=== PATIENT | male | born 1950 | race African-American/Black ===

== ENCOUNTER 2025-02-28 13:47 | Emergency (ER) | payer OTHER, SELFPAY ==
[2025-02-28 13:55] VITALS: BP 164/91; PULSE 64; RESP 18; TEMP 36.6; O2SAT 96; BMI 35.5
[2025-02-28 14:44] LABS: PCR FLU A Negative PCR FLU A (Negative); PCR FLU B Negative PCR FLU B (Negative); PCR RSV Negative PCR RSV (Negative); SARS PCR* Negative SARS-CoV-2 (Negative)
--- OUTSIDE RECORDS SUMMARY | 2025-02-28 16:28 | XMS_ITS | Encounter Summary ---
Author Organization [facility] Address [address] [place] [address] Phone Care Team Providers Care Isotope Hydrologist Name Role Phone Herbert Vasquez MD Primary Care Provider [phone] Reason for Visit * Reason Onset Date Comments Results 10/17/2020 adrenal work up Encounter Details Date Type Department Care Team ([facility] st Contact Info) Description 10/17/2020 Telephone [facility] Urology [place] [address] [place] [address] Brad Taylor MD [address] [place] [address] Results (adrenal work up) Social History Tobacco Use Types Packs/Day Years Used Date Smoking Tobacco: Never Smokeless Tobacco: Never Alcohol Use Standard Drinks/Week Comments Never 0 (1 standard drink = 0.6 oz pur e alcohol) AUDIT-C Answer Date Recorded Q1: How often do you have a drink containing alc ohol? Never 03/02/2020 Average Number of Drinks Not on file 020 Q3: How often do you have si x or more drinks on one occasion? Never 03/02/2020 Sex and Gender Information Value Date Recorded Sex Assigned at Not on file Legal Sex Male 1:43 PM CDT Gender Identity Not on file Sexual Orientation Not on file documented as of this encounter Miscellaneous Notes * Telephone Encounter - Caity Guidry - 10/17/2020 1:14 PM CDT Pt notified of lab results * Telephone Encounter - Mireille Petersen LPN - 10/17/2020 8:31 AM CDT LVm for jose regarding adrenal work up all coming back normal * Telephone Encounter - Mireille Petersen LPN - 10/17/2020 8:30 AM CDT ----- Message from Brad Taylor MD sent at 10/16/2020 7:18 PM CDT ----- Please let him know adrenal labs are fine documented in this encounter Plan of Treatment Upcoming Encounters Date Type Department Care Team (Late st Contact Info) Description 03/09/2025 1:10 PM CDT Office Visit [facility] Hematology and Oncology [address] [phone] Lilibeth Belcher [address] [phone] 03/21/2025 1:40 PM CDT Office Visit [facility] Internal Medicine [place] [address] [place] [address] Herbert Vasquez MD [address] [place] [address] documented as of this encounter Visit Diagnoses Not on filedocumented in this encounter Care Teams Isotope Hydrologist Relationship Specialty Start Date End Date Herbert Vasquez MD PCP - General Adult Medicine 03/02/20 documented as of this encounter
--- OUTSIDE RECORDS SUMMARY | 2025-02-28 16:28 | XMS_ITS | Clinical Summary ---
Author Organization [facility] Address [address] [place] [address] Phone Care Team Providers Care Plaster Block Layer Name Role Phone Herbert Vasquez MD Primary Care Provider [phone] Allergies Active Allergy Reactions Criticality Noted Date Comments Spironolactone Other; see comment 03/11/2021 Breast sensitivity gynecomastia Amlodipine Other; see comment 03/11/2021 Leg swelling Medications LORazepam (ATIVAN) 1 mg tabletIndication s:anxiety Take one 1-2 tablets 30 min prior to airplane travel do not drive on medication 15 tablet 4 Active triamterene (DYRENIUM) 50 mg capsuleIndicatio ns:HTN (hypertension), benign Take 1 capsule (50 mg total) by mouth every day 90 capsule 4 4 Active lisinopriL 40 mg tabletIndication s:Benign essential HTN TAKE 1 TABLET(40 MG) BY MOUTH EVERY DAY 90 tablet 4 4 Active carvediloL (COREG) 12.5 mg tabletIndication s:Hypertension, unspecified type Take 1 tablet (12.5 mg total) by mouth 2 (two) times daily 180 tablet 4 5 Active cholecalciferol (VITAMIN D3) 50 mcg (2,000 unit) capsule Take 4,000 Units by mouth every morning Active gabapentin (NEURONTIN) 300 mg capsuleIndicatio ns:Umbilical hernia without obstruction or gangrene Take 1 capsule (300 mg total) by mouth 3 (three) times daily 9 capsule 5 Active terazosin 10 mg capsuleIndicatio ns:BPH associated with nocturia Take 1 capsule (10 mg total) by mouth every day 90 capsule 4 5 Active amLODIPine (NORVASC) 5 mg tabletIndication s:HTN (hypertension), benign Take 1 tablet (5 mg total) by mouth every day 30 tablet 5 02/29/20 26 Active Active Problems Problem Noted Date Diagnosed Date Hematuria, unspecified 06/22/2020 Assessment & Plan (06/22/2020 2:40 PM PRESCRIPTIONIST): He declines any urinary discomfort or urinary frequency. He is a nonsmoker and does not drink alcohol. He does have a history of BPH however last PSA checked was normal. Will proceed with urinalysis and urine culture for possibility of underlying infection. He is with one longstanding partner so I doubt this is secondary to an STI however this is a possibility. Other differentials include acute prostatitis. If initial workup unremarkable, will recommend that he see his PCP to evaluate further. Fall 06/22/2020 Assessment & Plan (06/22/2020 2:40 PM PRESCRIPTIONIST): I suspect this is secondary to become orthostatic. He takes all of his medications in the PM all which are for HTN or have BP lowering effects. Advised him to split them up and take terazosin and metoprolol in the PM and lisinopril in the AM. He voiced understanding and agreement with this plan. Penile rash 06/22/2020 Assessment & Plan (06/22/2020 2:41 PM PRESCRIPTIONIST): Likely secondary to possible penile yeast infection. He uses a cream as needed prescribed by PCP. He tells me the cream is working. He denies any itching or other discomfort. Advised that if he cream stops working to control the rash or if it starts to spread to be seen back in clinic. He voiced understanding. Resolved Problems Problem Noted Date Diagnosed Date Resolved Date Umbilical hernia without obs truction or gangrene 09/06/2024 09/16/2024 Encounters Date Type Department Care Team Description [facility] Internal Medicine [place] [address] [place] [phone] Herbert Vasquez MD Refill Request 12/06/2024 Refill [facility] Internal Medicine and Nephrology [address] [address] Herbert Vasquez MD Refill Request from Last 3 Months Immunizations Immunization Administration Dates Next Due Influenza Quadrivalent Adjuv anted (FLUAD QUAD) 03/30/2022 Respiratory Syncytial Virus - RSV (Abrysvo) 06/08 SARS-CoV-2 (Pfizer Monovalent COVID-19) 08/07/19,07/16/2020,07/12/2020 Family History Medical History Relation Name Comments Diabetes Brother Hypertension Brother No Pertinent Hx Daughter Prostate Cancer Father Alzheimer's Disease Mother Diabetes Sister Hypertension Sister No Pertinent Hx Son Relation Name Status Comments Brother Alive Daughter Alive Father Mother Sister pateint cant re member what sister of Son Alive Social History Tobacco Use Types Packs/Day Years Used Date Smoking Tobacco: Never Smokeless Tobacco: Never Tobacco Cessation:Counseling Given: Not Answered Alcohol Use Standard Drinks/Week Comments Never 0 (1 standard drink = 0.6 oz pur e alcohol) AUDIT-C Answer Date Recorded Q1: How often do you have a drink containing alc ohol? Never 03/02/2020 Average Number of Drinks Not on file 020 Q3: How often do you have si x or more drinks on one occasion? Never 03/02/2020 Hunger Vital Sign Answer Date Recorded Within the past 12 months, y ou worried that your food would run out before you got the money to buy more. Never true 08/09/19 25 Within the past 12 months, t he food you bought just didn't last and you didn't have money to get more. Never true 08/08/2024 Sex and Gender Information Value Date Recorded Sex Assigned at Not on file Legal Sex Male 1:43 PM CDT Gender Identity Not on file Sexual Orientation Not on file Last Filed Vital Signs Vital Sign Reading Time Taken Comments Blood Pressure 160/80 09/16/2024 11:35 AM CDT Pulse 54 09/16/2024 7:15 AM CDT Temperature 36.7 C (98.1 F) 09/16/2024 10:26 AM CDT Respiratory Rate 18 09/16/2024 11:1 5 AM CDT Oxygen Saturation 96% 09/16/2024 11: 15 AM CDT Inhaled Oxygen Concentration - - Weight 120.9 kg (266 lb 8.6 oz) 09/16/2024 7:15 AM CDT Height 182.9 cm (6') 09/16/2024 7:15 AM CDT Body Mass Index 36.15 09/16/2024 7:15 AM CDT Plan of Treatment Upcoming Encounters Date Type Department Care Team (Late st Contact Info) Description 03/09/2025 1:10 PM CDT Office Visit [facility] Hematology and Oncology [address] [place] [address] Lilibeth Belcher DO [address] [place] [address] 03/21/2025 1:40 PM CDT Office Visit [facility] Internal Medicine [place] [address] [place] [phone] Herbert Vasquez MD [address] [place] [address] Health Maintenance Due Date Last Done Comments Diagnostic Colonoscopy 1950 DTaP/Tdap/Td Vaccines (1 - Tdap) 1969 CT Colonography 1995 Fecal Immunochemical Testing (FIT) 1995 Fecal Occult Blood (FOBT) 1995 Flexible Sigmoidoscopy 1995 HCPOA Document on File 2000 Pneumococcal Vaccines (50+) (1 of 1 - PCV) 2000 Zoster (Shingles) Vaccine (1 of 2) 2000 Screening Colonoscopy 01/03/2025 01/03/2015 COVID-19 Vaccine (2024- season) 2025 04/12/2023, 03/30/2022, 03/27/2021, Additional history exists Influenza Vaccine (#1) 2025 03/30/2022 Depression Screening 08/16/2025 08/16/2024, 08/11/2024, 08/02/2024, Additional history exists Eligible for Subsequent Annual Medicare Wellness Exam 08/16/2025 08/16/2024 Fall Screening 08/16/2025 08/16/2024, 10/2023, 08/11/2023, Additional history exists Colorectal Cancer Screening 02/23/2027 FIT-DNA (Cologuard) 02/23/2027 02/24/2024 Screening for Diabetes 09/22/2027 , 09/16/2024, 09/07/2024, Additional history exists RSV Vaccine (60+/) Completed 06/19/2023 Eligible for Initial Annual Medicare Wellness Exam Discontinued 08/11/2023 HIB Vaccines Aged Out No longer eligi ble based on patient's age to complete this topic HPV Vaccines Aged Out No longer eligi ble based on patient's age to complete this topic Hepatitis A Vaccines Aged Out No long er eligible based on patient's age to complete this topic Hepatitis B Vaccines Aged Out No long er eligible based on patient's age to complete this topic IPV Vaccines Aged Out No longer eligi ble based on patient's age to complete this topic Meningococcal B Vaccine Aged Out No l onger eligible based on patient's age to complete this topic Meningococcal Vaccine (ACWY) Aged Out No longer eligible based on patient's age to complete this topic Rotavirus Vaccines Aged Out No longer eligible based on patient's age to complete this topic Medical Devices Implanted Type Area Cheese Processor Device Identifier Shelf Expiration Date Model / Serial / Lot Ph[employer]ix St Umbilical Hernia Mesh Implanted:Qty: 1 on 09/16/2024 by Sabas Zhang MD at [facility] LOCATION N/A: [employer]mb[employer] 05/05/2025 [id number] / / [id number] Procedures Procedure Name Priority Date/Time Associated Diagnosis Comments COMPREHENSIVE METABOLIC PANEL Routine 09/21/2024 1:10 PM CDT Elevated serum creatinine COLOGUARD Routine 02/24/2024 3:00 AM CDT Colon cancer screening from Last 3 Months or Most Recently Relevant to Health Maintenance Results * (ABNORMAL) COMPREHENSIVE METABOLIC PANEL (09/21/2024 1:10 PM CDT) CALCIUM 8.7 8.4 - 10.2 mg/dL [facility] GLUCOSE 106 74 - 106 mg/dL [facility] Comment: REFERENCE RANGE FOR GLUCOSE: NON- ADULT 65 TO 99 MG/DL-FASTING, NORMOGLYCEMIA 100 TO 125 MG/DL-IMPAIRED FASTING GLUCOSE 65 TO 125 MG/DL-NORMOGLYCEMIA, NON-FASTING IMPAIRED GLUCOSE TOLERANCE IS DIAGNOSED IF THE FOLLOWING ARE PRESENT: FASTING GLUCOSE LEVEL 100-125 MG/DL; AND THE 120 MINUTES SAMPLE IS BETWEEN 140-199 MG/DL BASED ON ADA GUIDELINES, FOLLOW-UP REPORT OF THE EXPERT COMMITTEE ON THE DIAGNOSIS OF DIABETES MELLITUS. DIABETES CARE,VOL.26.. FLAGGING IS BASED ON FASTING REF RANGE BUN 12 7 - 20 mg/dL [facility] CREATININE 1.3 0.7 - 1.5 mg/dL [facility] TOTAL PROTEIN 7.1 6.3 - 8.2 g/dL [facility] ALBUMIN 3.8 3.5 - 5.0 g/dL [facility] BILIRUBIN, TOTAL 0.5 0.2 - 1.3 mg/dL [facility] AST 37 15 - 46 U/L [facility] ALT 22 0 - 50 U/L [facility] ALKALINE PHOSPHATASE 100 38 - 126 U/L [facility] SODIUM 138 137 - 145 mmol/L [facility] POTASSIUM 4.3 3.5 - 5.1 mmol/L [facility] CHLORIDE 108(H) 98 - 107 mmol/L [facility] Comment: CHLORIDE NOTE: Triglyceride at 600 mg/dl may cause a positive bias of approximately 2.1 mmol/L for Chloride CO2 30 22 - 30 mmol/L [facility] GFR:NON- 54 arbitrary unit [facility] GFR: 65 arbitrary unit [facility] Comment: CHRONIC KIDNEY DISEASE <60 ML/MIN/1.73 M^2 KIDNEY FAILURE <15 ML/MIN/1.73 M^2 REFERENCE: NKDEP (MDRD equation) NOTE: Results of GFR should be interpreted in relation to patient's clinical history & presenting condition. [facility], [address] [place] [phone] 09/21/2024 1:10 PM CDT 09/21/2024 3:18 PM CDT us Herbert Vasquez MD HEM/CHEM/IMMUN-BLOOD Final Resu lt [facility] [address] [place] [address], * COLOGUARD (02/24/2024 3:00 AM CDT) Pathologist [facility] COLOGUARD Negative Negative 03/02/2024 6:07 AM CDT [facility] (CLIA #:[id number]) Comment: NEGATIVE TEST RESULT. A negative Cologuard result indicates a low likelihood that a colorectal cancer (CRC) or advanced adenoma (adenomatous polyps with more advanced pre-malignant features) is present. The chance that a person with a negative Cologuard test has a colorectal cancer is less than 1 in 1500 (negative predictive value >99.9%) or has an advanced adenoma is less than 5.3% (negative predictive value 94.7%). These data are based on a prospective cross-sectional study of 10,000 individuals at average risk for colorectal cancer who were screened with both Cologuard and colonoscopy. (Kyle Sherman et al, N Engl J Med 2014;370(14):1368-5954) The normal value (reference range) for this assay is negative. COLOGUARD RE-SCREENING RECOMMENDATION: Periodic colorectal cancer screening is an important part of preventive healthcare for asymptomatic individuals at average risk for colorectal cancer. Following a negative Cologuard result, the [place] [employer] Society and U.S. Multi-Society Task Force screening guidelines recommend a Cologuard re-screening interval of 3 years. References: [place] [employer] Guideline for Colorectal Cancer Screening: https://www.cancer.org/cancer/upzhl-tkougk-fydeif/tfiouvudp-jfqcfstxv-twgfqsp/ac s-rec ommendations.html.; Too DK, Ike CR, Jennifer JoyaK, Colorectal Cancer Screening: Recommendations for Physicians and Patients from the U.S. Multi-Society Task Force on Colorectal Cancer Screening , Am J Gastroenterology 2017; 112:4285-3538. TEST DESCRIPTION: Composite algorithmic analysis of stool DNA-biomarkers with hemoglobin immunoassay. Quantitative values of individual biomarkers are not reportable and are not associated with individual biomarker result reference ranges. Cologuard is intended for colorectal cancer screening of adults of either sex, 45 years or older, who are at average-risk for colorectal cancer (CRC). Cologuard has been approved for use by the U.S. FDA. The performance of Cologuard was established in a cross sectional study of average-risk adults aged 50-84. Cologuard performance in patients ages 45 to 49 years was estimated by sub-group analysis of near-age groups. Colonoscopies performed for a positive result may find as the most clinically significant lesion: colorectal cancer [4.0%], advanced adenoma (including sessile serrated polyps greater than or equal to 1cm diameter) [20%] or non- advanced adenoma [31%]; or no colorectal neoplasia [45%]. These estimates are derived from a prospective cross-sectional screening study of 10,000 individuals at average risk for colorectal cancer who were screened with both Cologuard and colonoscopy. (Kyle Vasquez al, N Engl J Med 2014;370(14):6846-0151.) Cologuard may produce a false negative or false positive result (no colorectal cancer or precancerous polyp present at colonoscopy follow up). A negative Cologuard test result does not guarantee the absence of CRC or advanced adenoma (pre-cancer). The current Cologuard screening interval is every 3 years. ([place] [employer] Society and U.S. Multi-Society Task Force). Cologuard performance data in a 10,000 patient pivotal study using colonoscopy as the reference method can be accessed at the following location: www.[employer]/results. Additional description of the Cologuard test process, warnings and precautions can be found at www.[employer]ogiWardard.com. Stool specimen (specimen) RECTAL SWAB / Unknown 02/24/2024 3:00 AM CDT 02/25/2024 12:06 PM CDT us Herbert Vasquez MD REFERENCE NON-BLOOD Final Resul t [facility] (CLIA #:[id number]) [address] [place] [address], from Last 3 Months or Most Recently Relevant to Health Maintenance Insurance [employer] [facility] [employer] Care Teams Plaster Block Layer Relationship Specialty Start Date End Date Herbert Vasquez MD PCP - General Adult Medicine 03/02/20
--- OUTSIDE RECORDS SUMMARY | 2025-02-28 16:28 | XMS_ITS | Encounter Summary ---
Author Organization [facility] Address [address] [place] [address] Phone Care Team Providers Care Retreader Name Role Phone Herbert Vasquez MD Primary Care Provider [phone] Encounter Details Date Type Department Care Team (Late Contact Info) Description 01/22/2018 Scanned Document NON JONES REFERRING DOCS Provider, Outside Social History Tobacco Use Types Packs/Day Years Used Date Smoking Tobacco: Never Assessed Sex and Gender Information Value Date Recorded Sex Assigned at Not on file Legal Sex Male 1:43 PM CDT Gender Identity Not on file Sexual Orientation Not on file documented as of this encounter Plan of Treatment Upcoming Encounters Date Type Department Care Team (Late Contact Info) Description 03/09/2025 1:10 PM CDT Office Visit [facility] Hematology and Oncology [address] [address] Lilibeth Belcher [address] [phone] 03/21/2025 1:40 PM CDT Office Visit [facility] Internal Medicine [place] [address] [place] [phone] Herbert Vasquez MD [address] [place] [address] documented as of this encounter Visit Diagnoses Not on filedocumented in this encounter Care Teams Retreader Relationship Specialty Start Date End Date Herbert Vasquez MD PCP - General Adult Medicine 03/02/20 documented as of this encounter
--- OUTSIDE RECORDS SUMMARY | 2025-02-28 16:28 | XMS_ITS | Encounter Summary ---
Author Organization [facility] Address [address] [place] [address] Phone Care Team Providers Care Pole Peeling Machine Operator Name Role Phone Herbert Vasquez MD Primary Care Provider [phone] Reason for Visit * Reason Comments Refill Request Encounter Details Date Type Department Care Team ([facility] Contact Info) Description 02/28/2025 Refill [facility] Internal Medicine [place] [address] [place] [phone] Herbert Vasquez MD [address] [place] [address] Refill Request Social History Tobacco Use Types Packs/Day Years [...] Description 03/09/2025 1:10 PM CDT Office Visit [facility] Hematology and Oncology [facility] [address] [place] [address] Lilibeth Belcher DO [address] [place], [place] [address] 03/21/2025 1:40 PM CDT Office Visit [facility] Internal Medicine [place] [address] [place] [address] Herbert Vasquez MD [address] [place] [address] documented as of this encounter Visit Diagnoses Diagnosis HTN (hypertension), benign Essential hypertension, benign documented in this encounter Care Teams Pole Peeling Machine Operator Relationship Specialty Start Date End Date Herbert Vasquez MD PCP - General Adult Medicine 03/02/20 documented as of this encounter
--- OUTSIDE RECORDS SUMMARY | 2025-02-28 16:28 | XMS_ITS | Encounter Summary ---
Author Organization [facility] Address [address] [place] [address] Phone Care Team Providers Care Bruise Trimmer Name Role Phone Herbert Vasquez MD Primary Care Provider [phone] Encounter Details Date Type Department Care Team (Late st Contact Info) Description 01/03/2015 Scanned Document [facility] [address] [place] [address] Provider, Interface Default Social History Tobacco Use Types Packs/Day Years [...] Description 03/09/2025 1:10 PM CDT Office Visit [facility] Hematology and Oncology [address] [phone] Lilibeth Belcher DO [address] [place] [phone] 03/21/2025 1:40 PM CDT Office Visit [facility] Internal Medicine [place] [address] [place] [phone] Herbert Vasquez MD [address] [place] [address] documented as of this encounter Visit Diagnoses Not on filedocumented in this encounter Care Teams Bruise Trimmer Relationship Specialty Start Date End Date Herbert Vasquez MD PCP - General Adult Medicine 03/02/20 documented as of this encounter
--- OUTSIDE RECORDS SUMMARY | 2025-02-28 16:28 | XMS_ITS | Encounter Summary ---
Author Organization [facility] Address [address] [place] [address] Phone Care Team Providers Care Relay Shop Supervisor Name Role Phone Herbert Vasquez MD Primary Care Provider [phone] Reason for Visit * Reason Onset Date Comments Results 10/05/2020 lab work Encounter Details Date Type Department Care Team ([facility] st Contact Info) Description 10/05/2020 Telephone [facility] [place] [address] [place] [address] Brad Taylor MD [address] [place] [address] Results (lab work) Social History Tobacco Use Types Packs/Day Years [...] on file Sexual Orientation Not on file COVID-19 Exposure Response Date Recorded In the last month, have you been in contact with someone who was confirmed or suspected to have Coronavirus / COVID-19? No / Unsure 09/07/2020 3:04 PM CDT documented as of this encounter Miscellaneous Notes * Telephone Encounter - Mireille Petersen LPN - 10/05/2020 10:28 AM CDT Called and talked to Themla in lab she said the catecholamines were drawn but they go to [facility] and can take up to 10 days. They were drawn though, currently still processing. * Telephone Encounter - Mireille Petersen LPN - 10/05/2020 10:27 AM CDT ----- Message from Brad Taylor MD sent at 10/05/2020 10:21 AM CDT ----- Please call him let him know test we have back are normal. The catecholamines need to be done in should be redrawn. Please find out why we were not notified test was canceled/not done. documented in this encounter Plan of Treatment Upcoming Encounters Date Type Department Care Team (Late st Contact Info) Description 03/09/2025 1:10 PM CDT Office Visit [facility] Hematology and Oncology [address] [address] Lilibeth Belcher DO [address] [place] [phone] 03/21/2025 1:40 PM CDT Office Visit [facility] Internal Medicine [place] [address] [place] [address] Herbert Vaqsuez MD [address] [place] [address] documented as of this encounter Visit Diagnoses Not on filedocumented in this encounter Care Teams Relay Shop Supervisor Relationship Specialty Start Date End Date Herbert Vasquez MD PCP - General Adult Medicine 03/02/20 documented as of this encounter
--- OUTSIDE RECORDS SUMMARY | 2025-02-28 16:28 | XMS_ITS | Encounter Summary ---
Author Organization [facility] Address [address] [place] [address] Phone Care Team Providers Care Toolmaker Helper Name Role Phone Herbert Vasquez MD Primary Care Provider [phone] Reason for Visit * Reason Onset Date Comments Results 10/05/2020 Encounter Details Date Type Department Care Team ([facility] Contact Info) Description 10/05/2020 Telephone [facility] Urology [place] [address] [place] [address] Brad Taylor MD [address] [place] [address] Results Social History Tobacco Use Types Packs/Day Years [...] Telephone Encounter - Caity Guidry - 10/17/2020 9:28 AM CDT Lab had been resulted * Telephone Encounter - Caity Guidry - 10/16/2020 8:43 AM CDT Per kalpana, lab is still pending with [facility]. * Telephone Encounter - Brad Taylor MD - 10/15/2020 6:04 PM CDT Please call Lab again in find out if we have catecholamine results * Telephone Encounter - Ivanna Horvath - 10/05/2020 8:06 AM CDT Called lab, Catecholamine and aldosterone are send outs. The reports are usually available 4-7 dayslater. Labs were drawn on 09/26/20, probably didn't get set up to run until 09/27/20. Theysaid that we could put a call into [facility] to see when it will be done if you would like. Please let me know. Thanks. * Telephone Encounter - Ivanna Horvath - 10/05/2020 8:06 AM CDT ----- Message from Brad Taylor MD sent at 10/04/2020 6:00 PM CDT ----- Please call Lab in check on catecholamine results documented in this encounter Plan of Treatment Upcoming Encounters Date Type Department Care Team (Late st Contact Info) Description 03/09/2025 1:10 PM CDT Office Visit [facility] Hematology and Oncology [address] [address] Lilibeth Belcher DO [address] [place] [address] 03/21/2025 1:40 PM CDT Office Visit [facility] Internal Medicine [place] [address] [place] [phone] Herbert Vasquez MD [address] [place] [address] documented as of this encounter Visit Diagnoses Not on filedocumented in this encounter Care Teams Toolmaker Helper Relationship Specialty Start Date End Date Herbert Vasquez MD PCP - General Adult Medicine 03/02/20 documented as of this encounter
--- OUTSIDE RECORDS SUMMARY | 2025-02-28 16:28 | XMS_ITS | Clinical Summary ---
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 Gender Identity Not on file Sexual Orientation Not on file Plan of Treatment Health Maintenance Due Date Last Done Comments Hepatitis C Virus (HCV) Screening 1950 TdaP Immunization 1950 Cologuard 1995 Colonoscopy 1995 Colorectal Cancer Screening 1995 Immunochemical Fecal Occult Blood 1995 Pneumococcal Immunization (5 0+ years) (1 of 1 - PCV) 2000 Zoster Immunization (1 of 2) 2000 SARS-COV-2 Immunization (1 - 2023- season) 2024 Influenza Immunization (#1) 2025 Respiratory Syncytial Virus (RSV) Immunization (Adult) (1 - 1-dose 75+ series) 2025 Hepatitis B Immunization Aged Out No longer eligible based on patient's age to complete this topic Human Papillomavirus (HPV) Immunization Aged Out No longer eligible b ased on patient's age to complete this topic Meningococcal Immunization (ACWY) Aged Out No longer eligible based on patient's age to complete this topic Rotavirus Immunization Aged Out No lo nger eligible based on patient's age to complete this topic Insurance [employer] on file
--- OUTSIDE RECORDS SUMMARY | 2025-02-28 16:28 | XMS_ITS | Encounter Summary ---
Author Organization [facility] Address [address] [place] [address] Phone Care Team Providers Care Pinsetter Mechanic Automatic Name Role Phone Herbert Vasquez MD Primary Care Provider [phone] Encounter Details Date Type Department Care Team (Late Contact Info) Description 01/23/2020 Scanned Document NON JONES REFERRING DOCS Provider, [...] Description 03/09/2025 1:10 PM CDT Office Visit [facility] Hematology and Oncology [address] [address] Lilibeth Belcher [address] [phone] 03/21/2025 1:40 PM CDT Office Visit [facility] Internal Medicine [place] [address] [place] [phone] Herbert Vasquez MD [address] [place] [address] documented as of this encounter Visit Diagnoses Not on filedocumented in this encounter Care Teams Pinsetter Mechanic Automatic Relationship Specialty Start Date End Date Herbert Vasquez MD PCP - General Adult Medicine 03/02/20 documented as of this encounter
--- NOTE | 2025-02-28 16:37 | ED_ITS ---
HPI - General Adult General Chief complaint: Hypertension Stated complaint: high BP Time Seen by Provider: 02/28/25 15:54 Source: patient Mode of arrival: ambulatory Limitations: no limitations History of Present Illness HPI narrative: Patient is a 74-year-old male presenting to the emergency department for hypertension. He has been checking his blood pressures at home and over the past few days they have been elevated. They were concerned could be related to his and tight congested medication he is taking for his viral symptoms. The highest the blood pressure has been at home was 190s over 100s. He did speak to his primary care provider who has sent him and other blood pressure medication. Was told to come to the emergency department to be evaluated. Denies chest pain, shortness of breath, abdominal pain, lightheadedness, dizziness, weakness, confusion, fevers, chills, diarrhea, constipation. Has been having a slight cough. Not aware of any sick contacts. No other concerns noted. Related Data Home Medications ?Medication ?Instructions ?Recorded ?Confirmed carvedilol 12.5 mg tablet 12.5 mg PO BID 02/28/2502/07 lorazepam 1 mg tablet (Ativan) 1 mg PO Q12H PRN 02/28/25 nystatin-triamcinolone 100,000 1 applic topical DAILY 02/28/25 02/28/25 unit/g-0.1 % topical cream terazosin 10 mg capsule 10 mg PO DAILY 02/28/2502/07 Allergies Allergy/AdvReac Type Severity Reaction Status Date / Time No Known Drug Allergies Allergy Verified 02/28/25 13:53 Review of Systems Status of ROS: Reports: 10 or more systems reviewed and unremarkable except as noted in History and below PFSH [facility] Social History Smoking Status: Never smoker How often do you have a drink containing alcohol: never AUDIT-C Alcohol total score: 0 Non-prescribed substance use: denies use Exam Narrative: Exam Narrative: Const: Well-nourished, Well-developed, in no distress Eyes: PERRL, no conjunctival injection, and symmetrical lids HENT: Atraumatic external nose and ears. Moist mucous membranes. Neck: Symmetric, trachea midline, No thyromegaly. CVS: RRR, No murmurs or gallops. Peripheral pulses 2+ and equal in all extremities RESP: Unlabored respiratory effort. Clear to auscultation bilaterally. GI: Nontender/Nondistended, No rebound or guarding. MSK:Extremities w/o deformity, Normal Active ROM Skin: Warm, Dry. No rashes or lesions. Neuro: Normal Muscle tone, No focal neurological deficits. Psych: Awake, Alert, & Oriented x3. Appropriate mood and affect. Const: Vital Signs, click to edit/add: Vital Signs - 24 hr 02/28/25 13:55 02/28/25 16:44 Temperature 97.8 F Pulse Rate 58 L Pulse Rate [Right Pulse Oximeter] 64 Respiratory Rate 18 16 Blood Pressure 173/94 H Blood Pressure [Ri ght Upper Arm] 164/91 H Pulse Oximetry 96 96 Oxygen Delivery Me thod Room Air Room Air Course Vital Signs Vital signs: Initial Vital Signs Temperature 97.8 F 02/28/25 13:55 Temperature Source Temporal Artery Scan 02/28/25 13:55 Pulse Rate 64 02/28/25 13:55 Respiratory Rate 18 02/28/25 13:55 Blood Pressure 164/91 H 02/28/25 13:55 Blood Pressure Mean 115 H 02/28/25 13:55 Blood Pressure Position Sitting 02/28/25 13:55 Pulse Oximetry 96 02/28/25 13:55 Oxygen Delivery Method Room Air 02/28/25 13:55 Vital Signs Temperature 97.8 F 02/28/25 13:55 Pulse Rate 64 02/28/25 13:55 Respiratory Rate 18 02/28/25 13:55 Blood Pressure 164/91 H 02/28/25 13:55 Pulse Oximetry 96 02/28/25 13:55 Oxygen Delivery Method Room Air 02/28/25 13:55 Temperature 97.8 F 02/28/25 13:55 Pulse Rate 58 L 02/28/25 16:44 Respiratory Rate 16 02/28/25 16:44 Blood Pressure 173/94 H 02/28/25 16:44 Pulse Oximetry 96 02/28/25 16:44 Oxygen Delivery Method Room Air 02/28/25 16:44 Medical Decision Making MDM Narrative Medical decision making narrative: Patient is a 74-year-old male presenting to the emergency department for asymptomatic hypertension. He does have some viral symptoms so I will order viral swabs. He otherwise is doing well. Vital signs are stable. Per ACEP recommendations for asymptomatic hypertension further workup is not necessary. I spoke to the patient about this and he is agreeable to this plan. Will call him back with results of his viral swabs. With his normal appearing vitals and overall appeared well I do not believe further lab work or imaging is necessary. Lab Data Labs: Lab Results 02/28/25 Range/Units 02:00 SARS-CoV-2 (PCR) Negative SARS-CoV-2 (Negative) Influenza Type A (PCR) Negative PCR FLU A (Negative) Influenza Type B (PCR) Negative PCR FLU B (Negative) RSV (PCR) Negative PCR RSV (Negative) Discharge Plan Discharge Clinical Impression: Acute viral syndrome Patient Disposition: Home, Self-Care Condition: Stable Instructions: Viral Syndrome (ED) Additional Instructions: We will call you back with the results of your viral test if anything is positive. I do recommend following up with the primary care provider for your hypertension. Return to emergency department for new or worsening symptoms. Prescriptions: No Action terazosin 10 mg capsule 10 mg PO DAILY carvedilol 12.5 mg tablet 12.5 mg PO BID Rx Instructions: must administer with a meal/food lorazepam [Ativan] 1 mg tablet 1 mg PO Q12H PRN nystatin-triamcinolone 100,000-0.1 unit/g-% cream 1 applic topical DAILY Follow Up/Referrals: Provider,Not a Local [Primary Care Provider, Family Practice] Stand Alone Forms: [employer] Info Instructions
[2025-02-28 16:44] VITALS: BP 173/94; PULSE 58; RESP 16; O2SAT 96
== END 2025-02-28 16:53 | disposition home or self-care (01) ==
PROVIDERS: Emergency Provider Student in an Organized Health Care Education/Training Program
DX: I10 Essential (primary) hypertension (principal); B34.9 Viral infection, unspecified
CPT/HCPCS: 87631; 99282